=== PATIENT | male | born 1960 | race Caucasian/White ===

== ENCOUNTER 2022-08-29 09:45 | Outpatient (CLI) | payer BC, SELFPAY | END 2022-08-29 09:46 | disposition home or self-care (01) | PROVIDERS: PCP Internal Medicine; Visit Provider Internal Medicine | DX: R61 Generalized hyperhidrosis (principal) | CPT/HCPCS: 80053; 80061; 84443 ==

== ENCOUNTER 2022-09-15 09:41 | Outpatient (CLI) | payer BC, SELFPAY ==
--- OUTSIDE RECORDS SUMMARY | 2022-09-17 09:09 | XMS_ITS | Continuity of Care Document ---
Author Name Unknown Organization [facility] Address [address] [address] [place] [address] Phone Care Team Providers Care Embryology Professor Name Role Phone Paul Dey MD Unavailable Unavailable Allergies, Adverse Reactions, Alerts Substance Reaction Status Criticality cat dander Active No Information Medications Medication Instructions Dosage Effective Dates (start - stop) Status Comments Prilosec OTC 20 mg tablet,delayed release take 1 capsule by oral route every day 1 capsule - Active Procedures Procedure Date Office Cons New/estab Mod Advance Directives Directive Yes / No Effective Date File Name No Information Encounters Encounter Description Practice Location Reason(s) For Visit Diagnoses Date Provider Providers Copied on Encounter [facility], [address] [address], [place], [place], [id number], [place] tel:[phone] [facility] No Information Tiburcio Miller. [address] [place] [address], [place] [address], [place], [place], [id number], [place]. tel:[phone] Office Cons New/estab Mod [facility], [address] [address], [place], [place], [id number], [place] tel:[phone] [facility] GI Symptoms or Concerns (chief complaint) Cough Tiburcio Miller. [address] [place] [address], [facility] [address], [place], [place], [id number], [place]. tel:[phone] Referring Provider: Barrington Heart MD, [address] [place], [address]. tel:[phone] Family History Family Member Type Diagnosis Age At Onset Mother Problem (finding) breast cancer Father Problem (finding) stomach cancer Payers Payer name Insurance type Covered green party ID Authoriza tion(s) No Information Social History Type Description Quantity Date Captured Comments Alcohol Use Details Unknown Caffeine Use Details Unknown Tobacco Use Status No Information Smoking Status No Information Sex Male Chief Complaint And Reason For Visit No Information Reason For Referral Reason For Referral No Information Plan Of Treatment Date Type Action Status No Information History Of Present Illness Encounter Date Complaint History Of Prese nt Illness GI Symptoms or Concerns I had th e pleasure of meeting Mr. Vipul Baez, a 59-year-old gentleman, seen in consultation at the request of Dr. Anderson Florentino, who presents with a complaint of cough, globus sensation, and acid reflux.Vipul begins the interview by telling me that his symptoms began last summer. He says that he was evaluating a piece of land and was digging in the dirt when he believes he may have inhaled something and he started coughing and feeling a chest pressure. This was quite severe for several hours, but unfortunately did not go away completely. He went on to have several months of morning coughing, throat clearing, and production of sputum. He went to see his Primary and was given a steroid inhaler, which also caused some pressure and did not completely relieve his symptoms.He wonders if perhaps some of his symptoms could be related to acid reflux as he has had chronic reflux and has been on omeprazole at a 20 mg dose for many years. Typically, the omeprazole that he i Functional Status Date Functional Assessmen t No Information Instructions Date Instruction Additional Infor jaz 1. Increase omeprazo le to 20 mg twice per day.2. He will update me, and if there is no improvement, we could consider switching to a different PPI in case he is experiencing tachyphylaxis from the chronic omeprazole use. Something like pantoprazole 40 mg daily would be the next option.3. I will obtain the records from his endoscopy and colonoscopy to ensure that he was not missing something on his recollection of these to me.Thank you so much for involving me in the care of Mr. Baez. Related to Cough Assessments Type Assessment Date No Information Patient Care Teams Name Effective Dates (start - stop) Status Members No Information
== END 2022-09-15 09:42 | disposition home or self-care (01) ==
LOC: NFLDREF 09-17 09:06
PROVIDERS: PCP Internal Medicine; Referring Provider Internal Medicine; Visit Provider Internal Medicine
DX: G47.00 Insomnia, unspecified (principal)
CPT/HCPCS: 82533

== ENCOUNTER 2022-12-19 14:46 | Outpatient (CLI) | payer BC, SELFPAY ==
--- NOTE | 2022-12-19 15:00 | CRLHL7_ITS ---
For Patients: As a result of the Century Cures Act, medical imaging exams and procedure reports are released immediately into your electronic medical record. You may view this report before your referring provider. If you have questions, please contact your health care provider. Indication: Chronic sinusitis. Technique: Noncontrast axial CT of the paranasal sinuses with coronal reformats are provided. No comparisons. Findings: 6 millimeter mucous retention cyst or polyp along the lateral wall of the right maxillary sinus. The remainder of the visualized paranasal sinuses are clear. The ostiomeatal complexes are patent bilaterally. The visualized intraorbital contents appear within normal limits. Impression: 1. Minor inflammatory change within the right maxillary sinus. 2. Otherwise, unremarkable CT of the paranasal sinuses. Please note that all CT scans at this facility use dose modulation, iterative reconstruction, and/or weight-based dosing when appropriate to reduce radiation dose to as low as reasonably achievable. Dictated by Mika Abdul MD @ 12/19/2022 9:54:02 PM (Electronically Signed)
== END 2022-12-19 14:47 | disposition home or self-care (01) ==
LOC: CT 14:47
PROVIDERS: PCP Internal Medicine; Visit Provider Internal Medicine
DX: J32.9 Chronic sinusitis, unspecified (principal)
CPT/HCPCS: 70486

== ENCOUNTER 2023-05-09 10:04 | Outpatient (CLI) | payer BC, SELFPAY ==
--- OUTSIDE RECORDS SUMMARY | 2023-05-09 10:08 | XMS_ITS | Continuity of Care Document ---
Author Name Unknown Organization [facility] Address [address] [place] [address] Phone Care Team Providers Care Tool And Die Maker Name Role Phone Kendrick Tsang MD Unavailable Unavailable Medications Medication Instructions Dosage Effective Dates (start - stop) Status Comments prednisone 20 mg tablet take 1 Tablet by oral route 2 times every day for 5 days then one tablet po qd x5 then d/c. 20 MG - No Longer Active Procedures Procedure Date Lumbar Spine Fusion, Posterolateral Spine Fusion, Each Add'Lvertebra 2018 Remove Lumbar Spine Lamina, 1 Seg X3 Mod ifier Remove Added Spine Lamina, 1 Seg 2018 Insert Spine Fixation, Posterior 2018 Lumbar Spine Fusion, Posterolateral Spine Fusion, Each Add'Lvertebra 2018 Remove Lumbar Spine Lamina, 1 Seg Remove Added Spine Lamina, 1 Seg 2018 Scan Proc Spinal BONE MARROW ASPIR BONE GRFG Autograft, Spine Surgery, Local 019 Allograft, Spine Surg, Morselized Insert Spine Fixation, Posterior 2018 Advance Directives Directive Yes / No Effective Date File Name No Information Encounters Encounter Description Practice Location Reason(s) For Visit Diagnoses Date Provider Providers Copied on Encounter [facility], [address], [place], [place], [id number], [place] tel:[phone] [facility] No Information 9 Sharan Marks. [facility], [address] [place] [address] [address], [place], [place], [id number], [place]. tel:[phone] [facility], [address], [place], [place], [id number], [place] tel:[phone] [facility] No Information 9 Hazel Neal. [facility], [address] [place] [address] [address], [place], [place], [id number], [place]. tel:[phone] Referring Provider: ALVIN Holman [place]. tel:[phone] [facility], [address], [place], [place], [id number], [place] tel:[phone] [facility] No Information 9 Sharan Marks. [facility], [address] [place] [address] [address], [place], [place], [id number], [place]. tel:[phone] Referring Provider: ALVIN Holman [place]. tel:[phone] Family History Family Member Type Diagnosis Age At Onset No Information Payers Payer name Insurance type Covered alliance party ID Authoriza tion(s) No Information Social History Type Description Quantity Date Captured Comments Sex Male Smoking Status No Information Chief Complaint And Reason For Visit No Information Reason For Referral Reason For Referral No Information History Of Present Illness Encounter Date Complaint History Of Prese nt Illness No Information Functional Status Date Functional Assessmen t No Information Instructions Date Instruction Additional Infor mation No Information Assessments Type Assessment Date No Information Patient Care Teams Name Effective Dates (start - stop) Status Members No Information
== END 2023-05-09 10:05 | disposition home or self-care (01) ==
LOC: LKVREF 10:06
PROVIDERS: PCP Internal Medicine; Visit Provider Otolaryngology
DX: R05.9 Cough, unspecified (principal); E66.9 Obesity, unspecified
CPT/HCPCS: 83036; 83516

== ENCOUNTER 2023-08-03 13:24 | Outpatient (CLI) | payer BC, SELFPAY ==
--- NOTE | 2023-08-03 14:00 | CT_ITS ---
Patient: MARK RUSSO Facility:?[facility] Patient ID:?[id number] Site Patient ID:?[id number]. Site :?[id number] Study:?CT-Chest WO-08/03/2023 1:46:25 PM Ordering Physician:GRADY Final Report: Indication: Shortness of breath Technique: Noncontrast CT chest Please note that all CT scans at this facility use dose modulation, iterative reconstruction, and/or weight-based dosing when appropriate to reduce radiation dose to as low as reasonably achievable. Comparison: 09/26/2020 Findings: Visualized thyroid is within normal limits. No enlarged lymph nodes are present within the thorax. No pleural or pericardial effusion. Adrenal glands are within normal limits. Spleen is not enlarged. Degenerative changes are present at both shoulders. Stable small nodules within the right perihilar lung measuring up to 4.4 millimeters, series 3, image 53 and image 54. Interval resolution of bilateral ground-glass opacities. No pulmonary fibrosis. 3 millimeter calcified nodule right lung apex. Ectasia of the descending thoracic aorta without aneurysm. Impression: No airspace disease or fibrosis. Sub 6 millimeter right-sided pulmonary nodules. Optional 1 year follow-up if the patient is a smoker. No adenopathy. Please note that all CT scans at this facility use dose modulation, iterative reconstruction, and/or weight-based dosing when appropriate to reduce radiation dose to as low as reasonably achievable. Dictated by Andre Wilkinson MD @ 08/04/2023 9:00:18 AM Signed by:?Andre Wilkinson MD @08/04/2023 9:00:18 AM (Electronic Signature)
== END 2023-08-03 13:25 | disposition home or self-care (01) ==
LOC: CT 13:25
PROVIDERS: PCP Internal Medicine; Visit Provider Internal Medicine
DX: R06.02 Shortness of breath (principal)
CPT/HCPCS: 71250

== ENCOUNTER 2023-09-25 10:05 | Outpatient (CLI) | payer OTHER, SELFPAY ==
--- OUTSIDE RECORDS SUMMARY | 2023-09-27 07:27 | XMS_ITS | Clinical Summary ---
Author Name Unknown Organization [facility] Address [place], [place] [address] Care Team Providers Care Agronomist Name Role Phone Kirby Medley MD Primary Care Provider Allergies Active Allergy Reactions Criticality Noted Date Comments Cat Dander Runny Nose 08/10/2018 Ciprofloxacin Intolerance-Can't Take,Rash 11/06/2006 JOINT PAIN Opioids - Morphine Analogues Shortness Of Breath High 08/10/2018 Patient is sensitive to ALL opioids. Can tolerate 1/2 doses Quinolones Hives Medium 08/10/2018 Sulfa (Sulfonamide Antibiotics) Hives,Rash 11/06/2006 Sulfasalazine Hives 10/10/2014 Triamcinolone Anxiety 10/10/2014 PN: chest pain, constipation, severe redness of face, headaches Medications Medication Sig Dispensed Refills Start Date End Date Status omeprazole (PRILOSEC) 20 mg Delayed-Release capsuleIndications :GERD (gastroesophageal reflux disease) Take 20 mg by mouth once daily before a meal. 0 05/29/2010 Active cholecalciferol, vitamin D3, (VITAMIN D3 ORAL) Take 1 Drop by mouth once daily. Active MAGNESIUM AMINO ACID CHELATE ORAL Take 1 Drop by mouth once daily. 400 mg per drop Active potassium gluconate 550 mg (90 mg) tab Take 1 tablet by mouth once daily. Active Patients Unique Medication From Home Take 1 Drop by mouth once daily. Nascent Iodine Liquid Active VITAMIN B COMPLEX ORAL Take 1 Drop by mouth once daily. Active acetaminophen (TYLENOL) 325 mg tabletIndications: Postoperative pain Take 2 tablets by mouth every 4 hours if needed. Max acetaminophen dose: 4000mg in 24 hrs. 60 tablet 08/15/2018 Active Active Problems Problem Noted Date Diagnosed Date GERD (gastroesophageal reflux disease) 1 Obesity, unspecified 05/29/2010 Smoker 09/05/2009 Family History Medical History Relation Name Comments Alcoholism Brother Heart Disease Father Heart Disease Mother Relation Name Status Comments Brother Father Mother Social History Tobacco Use Types Packs/Day Years Used Date Smoking Tobacco: Former Cigarettes Smokeless Tobacco: Never Comments:2002 Alcohol Use Standard Drinks/Week Comments Yes 2 (1 standard drink = 0.6 oz pur e alcohol) 4 beers/wk, none as of 10/24/19 Social Connections Answer Date Recorded Frequency of Communication with Friends and Fami ly Not on file 05/22/2021 Financial Resource Strain Answer Date R ecorded Difficulty of Paying Living Expenses Not on file 05/22/2021 Difficulty of Paying Living Expenses Not on file 05/22/2021 Sex and Gender Information Value Date Recorded Sex Assigned at Not on file Gender Identity Not on file Sexual Orientation Not on file Obstetrics History Last Filed Vital Signs Vital Sign Reading Time Taken Comments Blood Pressure 139/84 10/05/2019 11:17 PM CDT Pulse 92 10/05/2019 11:15 PM CDT Temperature 37 ??C (98.6 ??F) 10/05/2019 10:21 PM CDT Respiratory Rate 18 10/05/2019 9:27 PM CDT Oxygen Saturation 94% 10/05/2019 11:02 PM CDT Inhaled Oxygen Concentration - - Weight 101.6 kg (224 lb) 10/05/2019 9:27 PM CDT Height 175.3 cm (5' 9) 10/05/2019 9:27 PM CDT Body Mass Index 33.08 10/05/2019 9:27 PM CDT Plan of Treatment Health Maintenance Due Date Last Done Comments Tdap 1973 Depression screening for age 12+ 1974 HIV for age 15-65 1977 Hepatitis C screening for ag e 18-79 1980 Tetanus booster 1982 Colonoscopy through age 75 12/18/2007 Lipids for age 45-75 12/18/2007 Zoster (shingles) series for age 50+ (1 of 2) 2012 BMI (ht and wt on same day) for age 18+ 06/22/2019 06/22/2018 COVID-19 vaccine series (2022- season) 2023 Influenza for age 50-64 01/21/2024 Pneumococcal series for age 6-64 Aged Out No longer eligible based on patient's age to complete this topic Medical Devices Implanted Type Area Gear Nicker Device Identifier Shelf Expiration Date Model / Serial / Lot [id number] Osteoampsponge Implanted:Qty: 1 on 08/13/2018 by Kendrick Tsang MD at [facility] Explanted:at [facility] (Quantity not on file) Spine [employer] 03/26/2023 [id number]# / [id number] / [id number] Matrix [id number] Osteoampsponge Implanted:Qty: 1 on 08/13/2018 by Kendrick Tsang MD at [facility] Explanted:at [facility] (Quantity not on file) Spine [employer] 05/28/2023 [id number] / [id number] / Set Screw Lmbr 4.68r37ri Solera 4.75 Ns Brk Off - [id number] Implanted:Qty: 7 on 08/13/2018 by Kendrick Tsang MD at [facility] Spine [employer] Spine/Ortho [id number]# / / Screw Lmbr Post 7.5x50mm Solera 4.75 Va - [id number] Implanted:Qty: 2 on 08/13/2018 by Kendrick Tsang MD at [facility] Spine [employer] Spine/Ortho [id number]# / / Screw Lmbr Post 8.5x40mm Solera 4.75 Va - [id number] Implanted:Qty: 2 on 08/13/2018 by Kendrick Tsang MD at [facility] Spine [employer] Spine/Ortho [id number]# / / Ziyad Lmbr 40mmx4.75cm Solera 4.75 Cvd Co Cr - [id number] Implanted:Qty: 1 on 08/13/2018 by Kendrick Tsang MD at [facility] Spine [employer] Spine/Ortho [id number] # / / Ziyad Lmbr 45mmx4.75cm Solera 4.75 Cvd Co Cr - [id number] Implanted:Qty: 1 on 08/13/2018 by Kendrick Tsang MD at [facility] Spine [employer] Spine/Ortho [id number] # / / Advance Directives * Full Code (Latest Code Status on File) Date Activated Date Inactivated Comments 08/13/2018 5:23 PM 08/15/2018 2:53 PM Care Teams Agronomist Relationship Specialty Start Date End Date Kirby Medley MD [address] [place] [address] PCP - General Internal Medicine 10/24/19
--- OUTSIDE RECORDS SUMMARY | 2023-09-27 07:27 | XMS_ITS | Encounter Summary ---
Author Name Unknown Organization [facility] Address [address] [place] [address] Care Team Providers Care Delivery Motorcycle Driver Name Role Phone Kirby Medley MD Primary Care Provider [phone] Encounter Details Date Type Department Care Team (Late st Contact Info) Description 10/27/[address] Orders [address] [facility] [address] [place] [address] Joe Stearns MD [address] [place] [address] Rotator cuff tear, left Social History Tobacco Use Types Packs/Day Years Used Date Smoking Tobacco: Never Assessed Sex and Gender Information Value Date Recorded Sex Assigned at Not on file Gender Identity Not on file Sexual Orientation Not on file documented as of this encounter Plan of Treatment Not on file documented as of this encounter Visit Diagnoses Diagnosis Rotator cuff tear, left Rotator cuff (capsule) sprain documented in this encounter Care Teams Delivery Motorcycle Driver Relationship Specialty Start Date End Date Kirby Medley MD [address] [place] [address] PCP - General 09/30/14 documented as of this encounter
--- OUTSIDE RECORDS SUMMARY | 2023-09-27 07:27 | XMS_ITS | Continuity of Care Document ---
Author Name Unknown Organization [facility] Address [address] [place] [address] Phone Care Team Providers Care Dampener Operator Name Role Phone Kendrick Tsang MD Unavailable [...] Copied on Encounter [facility], [address], [place], [place], [id number], [place] tel:[phone] [facility] No Information 9 Sharan Marks. [facility], [address] [place] [address] [address], [place], [place], [id number], [place]. tel:[phone] [facility], [address], [place], [place], [id number], [place] tel:[phone] [facility] No Information 9 Hazel Neal. [facility], [address] [place] [address] [address], [place], [place], [id number], [place]. tel:[phone] Referring Provider: ALVIN Holman [place]. tel:[phone] [facility], [address], [place], [place], [id number], [place] tel:[phone] [facility] No Information 9 Sharan Marks. [facility], [address] [place] [address] [address], [place], [place], [id number], [place]. tel:[phone] Referring Provider: ALVIN Holman [place]. tel:[phone] Family History Family Member Type Diagnosis Age [...]
--- OUTSIDE RECORDS SUMMARY | 2023-09-27 07:27 | XMS_ITS | Clinical Summary ---
Author Name Unknown Organization [facility] Address [address], [place] [address] Care Team Providers Care Test Development Engineer Name Role Phone Kirby Medley MD Primary Care Provider [phone] Source Comments You are receiving this document as you are listed as the primary care provider,follow-up provider, or the patient has been referred to you for consultation.This is in compliance with the Medicare and[facility] EHR Incentive Program,which states Providers who transition their patient to another setting of careor provider of care or refers their patient to another provider of care shouldprovide summary care record for each transition of care or referral. [facility] Allergies Active Allergy Reactions Criticality Noted Date Comments Ciprofloxacin Rash 11/03/2014 Sulfa Antibiotics Hives 10/10/2014 Triamcinolone Anxiety 10/10/2014 PN: chest pain, constipation, severe redness of face, headaches Medications Medication Sig Dispensed Refills Start Date End Date Status omeprazole (AKA PRILOSEC) 10 MG capsule Take 10 mg by mouth daily (every 24 hours). 10/10/2014 Active Active Problems No known active problems Social History Tobacco Use Types Packs/Day Years Used Date Smoking Tobacco: Former Cigarettes Smokeless Tobacco: Never Comments:quit 4 yrs ago Alcohol Use Standard Drinks/Week Comments Yes 3 (1 standard drink = 0.6 oz pur e alcohol) Sex and Gender Information Value Date Recorded Sex Assigned at Not on file Gender Identity Not on file Sexual Orientation Not on file Last Filed Vital Signs Vital Sign Reading Time Taken Comments Blood Pressure 133/79 08/07/2017 3:30 PM CDT Pulse 74 08/07/2017 3:30 PM CDT Temperature 36.6 ??C (97.8 ??F) 08/07/2017 3:20 PM CD T Respiratory Rate 16 08/07/2017 3:30 PM CDT Oxygen Saturation 95% 08/07/2017 3:30 PM CDT Inhaled Oxygen Concentration - - Weight 104.3 kg (230 lb) 05/29/2018 12:39 PM [employer] Height 175.3 cm (5' 9) 05/29/2018 12:39 PM [employer] Body Mass Index 33.97 05/29/2018 12:39 PM [employer] Plan of Treatment Health Maintenance Due Date Last Done Comments Colon Cancer Screening Plan Due 1960 Hep C Screening (Preventive Services) 1960 PSA Screening Discussion 1962 HIV Screening (Preventive Services) 1978 Adult Preventive Visit 1980 DTaP/Tdap/Td (1 - Tdap) 1981 Cholesterol 1997 Zoster/Shingles (1 of 2) 2012 COVID-19 Vaccine (2022-2 4 season) 2023 Influenza (Season Ended) 2024 HepA Aged Out No longer eligi ble based on patient's age to complete this topic HepB Aged Out No longer eligi ble based on patient's age to complete this topic Hib Aged Out No longer eligi ble based on patient's age to complete this topic IPV (Polio) Aged Out No longer eligi ble based on patient's age to complete this topic MCV4 Aged Out No longer eligi ble based on patient's age to complete this topic Pneumococcal Aged Out No longer eligi ble based on patient's age to complete this topic Medical Devices Implanted Type Area Review Analyst Device Identifier Shelf Expiration Date Model / Serial / Lot [place] [employer] - [id number] Implanted:Qty: 1 on 08/07/2017 by Joe Stearns MD at [facility] Right: SHOULDER [employer] 05/21/2019 [id number] -4 / 000 / [id number] Biotendesis Swivelock - [id number] Implanted:Qty: 1 on 08/07/2017 by Joe Stearns MD at [facility] Right: SHOULDER [employer] 04/20/2019 [id number] / 000 / [id number] Care Teams Test Development Engineer Relationship Specialty Start Date End Date Kirby Medley MD [address] [place] [address] PCP - General 09/30/14
== END 2023-09-25 10:06 | disposition home or self-care (01) ==
LOC: NFLDREF 09-27 07:25
PROVIDERS: PCP Internal Medicine; Referring Provider Internal Medicine; Visit Provider Internal Medicine
DX: M81.0 Age-related osteoporosis without current pathological fracture (principal); E78.5 Hyperlipidemia, unspecified; R97.20 Elevated prostate specific antigen [PSA]; Z13.29 Encounter for screening for other suspected endocrine disorder; Z12.5 Encounter for screening for malignant neoplasm of prostate; Z13.21 Encounter for screening for nutritional disorder
CPT/HCPCS: 80053; 80061; 82306; 82607; 84443; G0103

== ENCOUNTER 2024-01-03 19:53 | Emergency (ER) | payer OTHER, SELFPAY ==
[2024-01-03] VITALS (27 sets, daily range): BP systolic 112–159; BP diastolic 78–103; PULSE 66–120; RESP 16–24; TEMP 36.2; O2SAT 93–98; BMI 35.0
--- NOTE | 2024-01-03 20:14 | ED_ITS ---
HPI - General Adult General Chief complaint: Arrhythmia/Palpitations Stated complaint: irregular heartbeat Time Seen by Provider: 01/03/24 20:13 History of Present Illness HPI narrative: Patient reports sudden onset of feeling irregular heartbeats last night after drinking a root beer. Has been in A-fib twice but he reports this feels about different . No chest pain or shortness of breath reported. 63-year-old man presenting to the emergency department with concern of irregular heartbeat. This hit ?bam after he had a root beer float. He is here about 3 hours after onset. Does have a history of AFib with RVR and has had 2 electrical cardioversions. They sound to have been without significant event. He is not feeling lightheaded. He says this time it feels just different than it has in the past. He is not having chest pain is not short of breath. No nausea. Was drinking alcohol last night. He is not anticoagulated. Is clear about time of onset. Past medical also significant for GERD and takes a PPI as well as laryngospasm. Does he reports, have a history of hypokalemia and hypomagnesemia. He does supplement magnesium. Related Data Home Medications ?Medication ?Instructions ?Recorded ?Confirmed albuterol sulfate 90 mcg/actuation 1 inh inhalation Q8H PRN 12/03/21 01/03/24 aerosol inhaler cholecalciferol (vitamin D3) 25 25 mcg PO QDAY 12/03/21 09/27/23 mcg (1,000 unit) capsule cod liver oil 1 cap PO ONCE 12/03/21 09/27/23 magnesium citrate 100 mg tablet 100 mg PO BID 12/03/21 09/27/23 melatonin-pyridoxine HCl (vitamin 3 tab PO .Bedtime 12/03/21 09/27/23 B6) 3 mg-10 mg tablet omeprazole 20 mg capsule,delayed 20 mg PO QDAY 12/03/21 09/27/23 release vitamin B complex (B 1 tab PO QDAY 12/03/21 09/27/23 Complex-Vitamin B12 tablet) esomeprazole magnesium 20 mg 20 mg PO DAILY 01/03/24 01/03/24 capsule,delayed release (Acid Machine Lead Burner (esomeprazole)) Previous Rx's ?Medication ?Instructions ?Recorded clonazepam 1 mg tablet 1 mg PO QHS Insomnia #60 tabs 02/20/23 Allergies Allergy/AdvReac Type Severity Reaction Status Date / Time Quinolones Allergy Mild Hives Verified 09/27/23 10:22 ciprofloxacin Allergy Unknown Verified 09/27/23 10:22 cat dander Allergy Verified 09/27/23 10:22 Sulfa Antibiotics Allergy Mild Rash Uncoded 09/27/23 10:22 opioids AdvReac Severe Breathing Uncoded 09/27/23 10:22 problems Review of Systems Status of ROS: Reports: 6 or more systems reviewed and unremarkable except as noted in History and below [facility] Medical History GERD (gastroesophageal reflux disease) ?K21.9 - Gastro-esophageal reflux disease without esophagitis (ICD-10) Gastroesophageal reflux (04/20/11) ?K21.9 - Gastro-esophageal reflux disease without esophagitis (ICD-10) Screening due ?Z13.9 - Encounter for screening, unspecified (ICD-10) Elevated PSA ?R97.20 - Elevated prostate specific antigen [PSA] (ICD-10) SOB (shortness of breath) ?R06.02 - Shortness of breath (ICD-10) Asthma ?J45.909 - Unspecified asthma, uncomplicated (ICD-10) Sinusitis ?J32.9 - Chronic sinusitis, unspecified (ICD-10) Cellulitis ?L03.90 - Cellulitis, unspecified (ICD-10) Night sweats ?R61 - Generalized hyperhidrosis (ICD-10) Palpitations ?R00.2 - Palpitations (ICD-10) Insomnia ?G47.00 - Insomnia, unspecified (ICD-10) Acute sinusitis with symptoms greater than 10 days ?J01.90 - Acute sinusitis, unspecified (ICD-10) Acute bronchitis ?J20.9 - Acute bronchitis, unspecified (ICD-10) Surgical History Status post lumbar spinal fusion ?Z98.1 - Arthrodesis status (ICD-10) Social History Smoking Status: Former smoker Little interest or pleasure in doing things: not at all Feeling down, depressed, or hopeless: not at all Exam Narrative: Exam Narrative: Pleasant. Of good energy. Darkly tanned. Breathing easily. Heart in a rapid irregularly irregular rhythm. Lungs are clear. Abdomen is overweight and soft. He has a small noninflamed umbilical hernia. Oropharynx is WNL. During conversation however peers that he swallows wrong and does begin to cough or have some irritation in his throat he says consistent with his history of laryngospasm. Otherwise extremities are well perfused. He is without edema. Const: Vital Signs, click to edit/add: Vital Signs - 24 hr 01/03/24 19:59 01/03/24 20:16 01/03/24 20:17 Temperature 97.2 F L Pulse Rate 102 H 118 H Pulse Rate [Pulse Oximeter] 120 H Respiratory Rate 18 Blood Pressure 153/88 H Blood Pressure [Ri ght Upper Arm] 159/78 H Pulse Oximetry 96 95 97 Oxygen Delivery Me thod Room Air Oxygen Flow Rate 01/03/24 20:30 01/03/24 20:42 01/03/24 20:45 Temperature Pulse Rate 104 H 91 84 Pulse Rate [Pulse Oximeter] Respiratory Rate Blood Pressure 143/96 H Blood Pressure [Ri ght Upper Arm] Pulse Oximetry 96 94 95 Oxygen Delivery Me thod Oxygen Flow Rate 01/03/24 20:52 01/03/24 21:00 01/03/24 21:02 Temperature Pulse Rate 90 82 78 Pulse Rate [Pulse Oximeter] Respiratory Rate Blood Pressure 123/84 129/82 Blood Pressure [Ri ght Upper Arm] Pulse Oximetry 93 96 95 Oxygen Delivery Me thod Oxygen Flow Rate 01/03/24 21:03 01/03/24 21:15 01/03/24 21:18 Temperature Pulse Rate 88 83 95 Pulse Rate [Pulse Oximeter] Respiratory Rate Blood Pressure 124/84 Blood Pressure [Ri ght Upper Arm] Pulse Oximetry 95 95 95 Oxygen Delivery Me thod Oxygen Flow Rate 01/03/24 21:30 01/03/24 21:33 01/03/24 21:34 Temperature Pulse Rate 85 84 86 Pulse Rate [Pulse Oximeter] Respiratory Rate 16 Blood Pressure 120/80 Blood Pressure [Ri ght Upper Arm] Pulse Oximetry 93 95 96 Oxygen Delivery Me thod Oxygen Flow Rate 01/03/24 21:45 01/03/24 22:07 01/03/24 22:10 Temperature Pulse Rate 99 110 H Pulse Rate [Pulse Oximeter] Respiratory Rate 19 Blood Pressure Blood Pressure [Ri ght Upper Arm] Pulse Oximetry 95 98 98 Oxygen Delivery Me thod Nasal Cannula Oxygen Flow Rate 2 01/03/24 22:10 01/03/24 22:13 01/03/24 22:15 Temperature Pulse Rate 97 109 H 75 Pulse Rate [Pulse Oximeter] Respiratory Rate 17 21 23 Blood Pressure 147/102 H 151/103 H Blood Pressure [Ri ght Upper Arm] Pulse Oximetry 98 98 97 Oxygen Delivery Me thod Nasal Cannula Nasal Cannula Nasal Cannula Oxygen Flow Rate 2 2 2 01/03/24 22:16 01/03/24 22:18 01/03/24 22:19 Temperature Pulse Rate 75 72 74 Pulse Rate [Pulse Oximeter] Respiratory Rate 24 20 18 Blood Pressure 148/80 H 130/80 Blood Pressure [Ri ght Upper Arm] Pulse Oximetry 95 98 98 Oxygen Delivery Me thod Nasal Cannula Nasal Cannula Oxygen Flow Rate 2 2 01/03/24 22:23 01/03/24 22:30 01/03/24 22:32 Temperature Pulse Rate 71 70 69 Pulse Rate [Pulse Oximeter] Respiratory Rate 24 19 19 Blood Pressure 112/82 122/86 Blood Pressure [Ri ght Upper Arm] Pulse Oximetry 97 96 97 Oxygen Delivery Me thod Oxygen Flow Rate 01/03/24 22:33 Temperature Pulse Rate 66 Pulse Rate [Pulse Oximeter] Respiratory Rate 17 Blood Pressure Blood Pressure [Ri ght Upper Arm] Pulse Oximetry 97 Oxygen Delivery Me thod Oxygen Flow Rate Documenting provider has reviewed patient's vital signs: yes Course Vital Signs Vital signs: Initial Vital Signs Temperature 97.2 F L 01/03/24 19:59 Temperature Source Temporal Artery Scan 01/03/24 19:59 Pulse Rate 120 H 01/03/24 19:59 Respiratory Rate 18 01/03/24 19:59 Blood Pressure 159/78 H 01/03/24 19:59 Blood Pressure Mean 105 01/03/24 19:59 Pulse Oximetry 96 01/03/24 19:59 Oxygen Delivery Method Room Air 01/03/24 19:59 Vital Signs Temperature 97.2 F L 01/03/24 19:59 Pulse Rate 120 H 01/03/24 19:59 Respiratory Rate 18 01/03/24 19:59 Blood Pressure 159/78 H 01/03/24 19:59 Pulse Oximetry 96 01/03/24 19:59 Oxygen Delivery Method Room Air 01/03/24 19:59 Temperature 97.2 F L 01/03/24 19:59 Pulse Rate 66 01/03/24 22:33 Respiratory Rate 17 01/03/24 22:33 Blood Pressure 122/86 01/03/24 22:32 Pulse Oximetry 97 01/03/24 22:33 Oxygen Delivery Method Nasal Cannula 01/03/24 22:18 Oxygen Flow Rate 2 01/03/24 22:18 Medications Administered Medications: Discontinued Medications Generic Name Dose Route Start Last Admin Trade Name Kaylen PRN Reason Stop Dose Admin Diltiazem HCl 20 mg 01/03/24 20:29 01/03/24 20:35 Diltiazem 5 Mg/Ml Inj IVP 01/03/24 20:30 20 mg ONCE ONE Administration Sodium Chloride 1,000 mls @ 1,000 mls/hr 01/03/24 22:01 01/03/24 21:20 0.9 % Sodium Chloride 1000 Ml IV 01/03/24 23:00 Infused .Q1H ONE Infusion Sodium Chloride 500 mls @ 500 mls/hr 01/03/24 22:40 01/03/24 22:44 0.9 % Sodium Chloride 500 Ml IV 01/03/24 23:39 Infused .Q1H ONE Infusion Medical Decision Making MDM Narrative Medical decision making narrative: Hooked up to monitor on arrival and EKG reviewed by me does confirm atrial fibrillation with RVR at a rate of 129. I do not see ischemic changes. IVs initiated. Received a L of normal saline and given 20 mg of diltiazem. No change in rhythm. Did draw labs on a verify magnesium level and potassium. These are reassuring. At this point risks and benefits of cardioversion and moderate procedural sedation are discussed. Did contact Anesthesia for assistance with sedation. Thankfully they are able to assist. Please see their notes for sedation record. Informed consent obtained See procedure note for electrical cardioversion. Calculated chads Vasc 2 score at 0. Should not need postprocedural antico agulation. Confirmed normal sinus on EKG reviewed by me at a rate of 65. No ischemic changes. Medical Records Medical records reviewed: Yes I reviewed the patient's medical records Lab Data Lab results reviewed: Yes I reviewed the patient's lab results Labs: Lab Results 01/03/24 01/03/24 Range/Units 20:15 21:30 Hgb 14.7 (13.5-17.5) gm/dL Sodium 141 (135-149) mmol/L Potassium 4.1 (3.6-5.1) mmol/L Chloride 109 (96-114) mmol/L Carbon Dioxide 22 (20-32) mmol/L Anion Gap 10 (7-15) mEq/L BUN 25 (7-30) mg/dL Creatinine 1.1 (0.5-1.5) mg/dL Estimated Creat Clear 68.23 Estimated GFR 76 ml/min Glucose 131 H (60-115) mg/dL Calcium 9.4 (8.4-10.6) mg/dL Magnesium 2.3 (1.5-2.6) mg/dL POC Troponin I 0.01 (0.01-0.04) ng/ml Critical Care Time Critical Care Time Critical Care Time: Yes Attestation: The patient required my highest level preparedness to intervene emergently and I personally spent this critical care time directly and personally managing the patient. This critical care time included: Obtaining a history; Examining the patient; Pulse oximetry; Ordering and reviewing of studies; Arranging urgent treatment with development of a management plan; Evaluation of patients response to treatment; Frequent reassessment discussions with other providers. This critical care time was performed to assess and manage the high probability of imminent life-threatening deterioration that could result in multiorgan failure. It was exclusive of separate billable procedures and treating other patients and teaching time. Total Critical Care Time in Minutes: 70 Discharge Plan Discharge Clinical Impression: Atrial fibrillation with rapid ventricular response Patient Disposition: Home w/ Parent or Adult Condition: Improved Additional Instructions: Continue to stay well-hydrated...mostly with water and less (root) beer. Keep active as you are doing. No restrictions. Return as needed. Pleasure caring for you. Prescriptions: No Action magnesium citrate 100 mg tablet 100 mg PO BID melatonin-pyridoxine HCl (B6) 3-10 mg tablet 3 tab PO .Bedtime albuterol sulfate 90 mcg/actuation HFA aerosol inhaler 1 inh inhalation Q8H PRN cholecalciferol (vitamin D3) 25 mcg (1,000 unit) capsule 25 mcg PO QDAY omeprazole 20 mg capsule,delayed release(DR/EC) 20 mg PO QDAY cod liver oil Capsule 1 cap PO ONCE vitamin B complex [B Complex-Vitamin B12] Tablet 1 tab PO QDAY clonazepam 1 mg tablet 1 mg PO QHS Qty: 60 0RF Rx Instructions: administer 30 minutes before bedtime esomeprazole magnesium [Acid Machine Lead Burner (esomeprazole)] 20 mg capsule,delayed release(DR/EC) 20 mg PO DAILY Follow Up/Referrals: Kirby Medley MD [Primary Care Provider] - Stand Alone Forms: Pro Player Connect Info Instructions Procedures Additional Procedures Procedure name: Electrical cardioversion Pre procedure diagnosis: Atrial fibrillation with RVR Post procedure diagnosis: Atrial fibrillation with RVR Written consent by: patient Site marking: not applicable Verification/time out: correct procedure Estimated blood loss (if any): none Conclusion: patient tolerated procedure (No complications) Additional comments: Following adequate sedation the applied synced cardioversion at 200 joules. One shock given and is returned to normal sinus verified on migratory farm hand. Rate in the 80s.
[2024-01-03] MEDS: 0.9 % SODIUM CHLORIDE 1000 ml 1,000 ML IV (20:20)
[2024-01-03] MEDS: dilTIAZem 5 MG/ML inj 20 MG IVP (20:35)
[2024-01-03 20:48] LABS: Hemoglobin* 14.7 gm/dL (13.5-17.5)
--- OUTSIDE RECORDS SUMMARY | 2024-01-03 20:54 | XMS_ITS | Encounter Summary ---
Author Organization [facility] Address [address] [place] [id number] Care Team Providers Care Associate Faculty Name Role Phone Kirby Medley MD Primary Care Provider [phone] Encounter Details Date Type Department Care Team (Late st Contact Info) Description 10/27/2014 Orders Only [facility] [place] [address] [place] [id number] Joe Stearns MD [address] [place] [address] Rotator cuff tear, left Social History Tobacco [...] sprain documented in this encounter Care Teams Associate Faculty Relationship Specialty Start Date End Date Kirby Medley MD [address] [place] [address] PCP - General 09/30/14 documented as of this encounter
--- OUTSIDE RECORDS SUMMARY | 2024-01-03 20:54 | XMS_ITS | Clinical Summary ---
Author Organization [facility] Address [place], [place] [address] Care Team Providers Care Measurement Operator Name Role Phone Kirby Medley MD Primary Care Provider [phone] Allergies Active Allergy Reactions Criticality Noted Date [...] this topic Medical Devices Implanted Type Area Chucking Machine Operator Device Identifier Shelf Expiration Date Model / Serial / Lot [id number] Osteoampsponge Implanted:Qty: 1 on 08/13/2018 by Kendrick Tsang MD at [facility] Explanted:at [facility] (Quantity not on file) Spine [employer] 03/26/2023 [id number] / [id number] / [id number] Matrix [id number] Osteoampsponge Implanted:Qty: 1 on 08/13/2018 by Kendrick Tsang MD at [facility] Explanted:at [facility] (Quantity not on file) Spine [employer] 05/28/2023 [id number] / [id number] / Set Screw Lmbr 4.15t14au Solera 4.75 Ns Brk Off - [id number] Implanted:Qty: 7 on 08/13/2018 by Kendrick Tsang MD at [facility] Spine Medtronic Spine/Ortho [id number]# / / Screw Lmbr Post 7.5x50mm Solera 4.75 Va - [id number] Implanted:Qty: 2 on 08/13/2018 by Kendrick Tsang MD at [facility] Spine [employer]tronic Spine/Ortho [id number]# / / Screw Lmbr Post 8.5x40mm Solera 4.75 Va - [id number] Implanted:Qty: 2 on 08/13/2018 by Kendrick Tsang MD at [facility] Spine [employer]tronic Spine/Ortho [id number]# / / Ziyad Lmbr 40mmx4.75cm Solera 4.75 Cvd Co Cr - [id number] Implanted:Qty: 1 on 08/13/2018 by Kendrick Tsang MD at [facility] Spine Medtronic Spine/Ortho [id number] # / / Ziyad Lmbr 45mmx4.75cm Solera 4.75 Cvd Co Cr - [id number] Implanted:Qty: 1 on 08/13/2018 by Kendrick Tsang MD at [facility] Spine Medtronic Spine/Ortho [id number] # / / Advance Directives * Full Code (Latest Code Status on File) Date Activated Date Inactivated Comments 08/13/2018 5:23 PM 08/15/2018 2:53 PM Care Teams Measurement Operator Relationship Specialty Start Date End Date Kirby Medley MD [address] [place] [address] PCP - General Internal Medicine 10/24/19
--- OUTSIDE RECORDS SUMMARY | 2024-01-03 20:54 | XMS_ITS | Clinical Summary ---
Author Organization [facility] Address [address] [place] [address] Care Team Providers Care Office Coordinator Receptionist Name Role Phone Kirby Medley MD Primary Care Provider [phone]- [phone] Source Comments You are receiving this document as you are listed as the primary care provider,follow-up provider, or the patient has been referred to you for consultation.This is in compliance with the Medicare and[employer] Health[employer] EHR Incentive Program,which states Providers who transition their patient to another setting of careor provider of care or refers their patient to another provider of care shouldprovide summary care record for each transition of care or referral. Chalkboard Allergies Active Allergy Reactions Criticality Noted Date [...] 104.3 kg (230 lb) 05/29/2018 12:39 PM GAS LOAD DISPATCHER Height 175.3 cm (5' 9) 05/29/2018 12:39 PM GAS LOAD DISPATCHER Body Mass Index 33.97 05/29/2018 12:39 PM GAS LOAD DISPATCHER Plan of Treatment Health Maintenance Due Date Last Done Comments Colon Cancer Screening Plan Due 1962 Hep C Screening (Preventive Services) 1962 PSA Screening Discussion 1962 HIV Screening (Preventive Services) 1978 Adult Preventive Visit 1980 DTaP/Tdap/Td (1 - Tdap) 1981 Cholesterol 1997 Zoster/Shingles (1 of 2) 2012 COVID-19 Vaccine (2022-2 4 season) 2023 Influenza (#1) 2024 HepA Aged Out No longer eligi [...] this topic Medical Devices Implanted Type Area C4 Planner Device Identifier Shelf Expiration Date Model / Serial / Lot [place] [employer] - [id number] Implanted:Qty: 1 on 08/07/2017 by Joe Stearns MD at [facility] Right: SHOULDER [employer] 05/21/2019 [id number] -4 / 000 / [id number] Scr Biotendesis Swivelock - [id number] Implanted:Qty: 1 on 08/07/2017 by Joe Stearns MD at [facility] Right: SHOULDER [employer] 04/20/2019 [id number] / 000 / [id number] Care Teams Office Coordinator Receptionist Relationship Specialty Start Date End Date Kirby Medley MD [address] [place] [address] PCP - General 09/30/14
[2024-01-03 21:00] LABS: Chloride* 109 mmol/L (96-114); Potassium* 4.1 mmol/L (3.6-5.1); Sodium* 141 mmol/L (135-149)
[2024-01-03 21:03] LABS: Anion Gap 10 mEq/L (7-15); Blood Urea Nitrogen* 25 mg/dL (7-30); Carbon Dioxide* 22 mmol/L (20-32); Creatinine* 1.1 mg/dL (0.5-1.5); Est. Creatinine Clearance* 68.23; Estimated Glomerular Filt Rate 76 ml/min
[2024-01-03 21:04] LABS: Calcium* 9.4 mg/dL (8.4-10.6); Glucose* 131 mg/dL (60-115); Magnesium* 2.3 mg/dL (1.5-2.6)
[2024-01-03 21:33] LABS: Troponin, Point-of-Care* 0.01 ng/ml (0.01-0.04)
[2024-01-03] MEDS: 0.9 % SODIUM CHLORIDE 500 ML 500 ML IV (22:05)
--- NOTE | 2024-01-03 22:24 | P.ANES_ITS ---
Anesthesia Charges Start Date/Time Anesthesia Start Date: 01/03/24 Anesthesia Start Time: 22:05 Stop Date/Time Anesthesia Stop Date: 01/03/24 Anesthesia Stop Time: 22:15 Summary Emergency: ACCOUNTING SOFTWARE SPECIALIST
== END 2024-01-03 22:52 | disposition home or self-care (01) ==
PROVIDERS: Emergency Provider Family Medicine; PCP Internal Medicine
DX: I48.91 Unspecified atrial fibrillation (principal)
CPT/HCPCS: 92960; 00410; 36415; 80048; 83735; 84484; 85018; 93005; 99140; 99284; 99291; 99292; J7030

== ENCOUNTER 2024-03-22 11:33 | Outpatient (CLI) | payer OTHER, SELFPAY | END 2024-03-22 11:34 | disposition home or self-care (01) | LOC: NFLDREF 03-25 12:21 | PROVIDERS: PCP Internal Medicine; Referring Provider Internal Medicine; Visit Provider Internal Medicine | DX: R97.20 Elevated prostate specific antigen [PSA] (principal); Z12.5 Encounter for screening for malignant neoplasm of prostate | CPT/HCPCS: G0103 ==

== ENCOUNTER 2024-06-06 07:14 | Outpatient (CLI) | payer BC, SELFPAY ==
--- NOTE | 2024-06-06 08:44 | P.ANES_ITS ---
Anesthesia Charges Start Date/Time Anesthesia Start Date: 06/06/24 Anesthesia Start Time: 07:53 Stop Date/Time Anesthesia Stop Date: 06/06/24 Anesthesia Stop Time: 08:43 Coding CPT Codes CPT Codes: ANES UPR LWR GI NDSC PX - 56166 ([id number]) P2 - PATIENT W/MILD SYST DISEASE, QX - ABAP DEVELOPER SVC W/ MD MED DIRECTION, QK - REPORT ANALYST 2-4 CNCRNT ANES PROC
--- NOTE | 2024-06-06 08:44 | W.ANESCHARGE ---
Anesthesia Charges Start Date/Time Anesthesia Start Date: 06/06/24 Anesthesia Start Time: 07:53 Stop Date/Time Anesthesia Stop Date: 06/06/24 Anesthesia Stop Time: 08:43 Coding CPT Codes CPT Codes: ANES UPR LWR GI NDSC PX - 54781 ([id number]) P2 - PATIENT W/MILD SYST DISEASE, QX - VIDEO CLERK SVC W/ MD MED DIRECTION, QK - THERAPY ASSISTANT 2-4 CNCRNT ANES PROC
--- NOTE | 2024-06-06 09:29 | P.ANES_ITS ---
Anesthesia Charges Start Date/Time Anesthesia Start Date: 06/06/24 Anesthesia Start Time: 07:53 Stop Date/Time Anesthesia Stop Date: 06/06/24 Anesthesia Stop Time: 08:43 Coding CPT Codes CPT Codes: ANES UPR LWR GI NDSC PX - 30871 ([id number]) QK - TRANSLATOR 2-4 CNCRNT ANES PROC, QX - MANDATE RETAIL SERVICE MERCHANDISER SVC W/ MD MED DIRECTION, P2 - PATIENT W/MILD SYST DISEASE
--- NOTE | 2024-06-06 09:29 | W.ANESCHARGE ---
Anesthesia Charges Start Date/Time Anesthesia Start Date: 06/06/24 Anesthesia Start Time: 07:53 Stop Date/Time Anesthesia Stop Date: 06/06/24 Anesthesia Stop Time: 08:43 Coding CPT Codes CPT Codes: ANES UPR LWR GI NDSC PX - 97095 ([id number]) QK - CLINIC OFFICE MANAGER 2-4 CNCRNT ANES PROC, QX - SALES CONTRACTS ANALYST SVC W/ MD MED DIRECTION, P2 - PATIENT W/MILD SYST DISEASE
== END 2024-06-06 07:15 | disposition home or self-care (01) ==
PROVIDERS: PCP Internal Medicine; Visit Provider Surgery
DX: Z12.11 Encounter for screening for malignant neoplasm of colon (principal); D12.3 Benign neoplasm of transverse colon; D12.8 Benign neoplasm of rectum; Z86.0100 Personal history of colon polyps, unspecified; K21.9 Gastro-esophageal reflux disease without esophagitis
CPT/HCPCS: 00813; 43239; 45385; 88305; J2704; J3490

== ENCOUNTER 2024-11-13 10:19 | Outpatient (CLI) | payer BC, SELFPAY ==
[2024-11-13 10:46] LABS: Creatinine* 1.2 mg/dL (0.5-1.5); Estimated Glomerular Filt Rate 69 ml/min
--- NOTE | 2024-11-13 11:00 | CRLHL7_ITS ---
For Patients: As a result of the Century Cures Act, medical imaging exams and procedure reports are released immediately into your electronic medical record. You may view this report before your referring provider. If you have questions, please contact your health care provider. Indication: CHRONIC COUGH Technique: CT Chest W/75CC [id number] intravenous contrast Please note that all CT scans at this facility use dose modulation, iterative reconstruction, and/or weight-based dosing when appropriate to reduce radiation dose to as low as reasonably achievable. Comparison: 08/03/2023 Findings: Scattered subcentimeter mediastinal lymph nodes are again noted. No pleural or pericardial effusion. The upper abdomen is unremarkable. Visualized thyroid is within normal limits. No fracture. Stable perifissural nodule on the right. Stable tiny nodules within the right upper lobe. No new nodules. Stable nodule within the left upper lobe. Impression: No significant change compared to the prior exam. No suspicious findings. Please note that all CT scans at this facility use dose modulation, iterative reconstruction, and/or weight-based dosing when appropriate to reduce radiation dose to as low as reasonably achievable. Dictated by Andre Wilkinson MD @ 11/13/2024 3:13:23 PM (Electronically Signed)
--- OUTSIDE RECORDS SUMMARY | 2024-11-14 00:10 | XMS_ITS | Clinical Summary ---
[facility] Organization [facility] Address [address] [place] [address] Care Team Providers Care Detective Supervisor Name Role Phone Kirby Medley MD Primary Care Provider [phone] Source Comments You are receiving this document as you are listed as the primary care provider,follow-up provider, or the patient has been referred to you for consultation.This is in compliance with the Medicare and[facility] Cent[facility] EHR Incentive Program,which states Providers who transition their patient to another setting of careor provider of care or refers their patient to another provider of care shouldprovide summary care record for each transition of care or referral. [employer] Allergies Active Allergy Reactions Criticality Noted Date Comments Ciprofloxacin Rash 11/03/2014 Sulfa Antibiotics Hives 10/10/2014 Sulfasalazine Hives High 10/10/2014 Triamcinolone Anxiety 10/10/2014 PN: chest pain, constipation, severe redness of face, headaches Medications omeprazole (AKA PRILOSEC) 10 MG capsule Take 1 Capsule (10 mg) by mouth daily. 10/10/2014 Active ALBUterol sulfate HFA 108 (90 Base) MCG/ACT inhaler 2 Puffs. 01/05/2024 Act maritza Potassium Gluconate 550 (90 K) MG TABS Take 1 Tablet by mouth daily. Active cholecalciferol (VITAMIN D3) 25 MCG (1000 UT) tablet Take 1 Drop by mouth. Active Magnesium Amino Acid Chelate 20 % POWD Take 1 Drop by mouth. Active budesonide (PULMICORT) 0.5 MG/2ML inhalation suspension Inhale 2 mL (0.5 mg). 03/26/2024 Active Active Problems Problem Noted Date Diagnosed Date Allergy to cats 02/28/2024 Asthma 02/28/2024 Atrial fibrillation with rapid ventricular respo nse 02/28/2024 Complex tear of medial meniscus of left knee 01/2024 Overview (02/28/2024): Seen on MRI 2016. No meniscal surgery has been performed on this knee. Cough 02/28/2024 Elevated PSA 02/28/2024 Gastroesophageal reflux disease with esophagitis 02/28/2024 Hoarseness 02/28/2024 Insomnia 02/28/2024 Laryngeal spasm 02/28/2024 Night sweats 02/28/2024 Osteoarthritis of left knee 02/28/2024 Pain of thigh 02/28/2024 Palpitations 02/28/2024 Screening due 02/28/2024 Pneumonia due to severe acut e respiratory syndrome coronavirus 2 (SARS-CoV-2) 02/28/2024 Sinusitis 02/28/2024 SOB (shortness of breath) 02/28/2024 Anxiety 04/20/2011 Obstructive sleep apnea 04/20/2011 Tobacco use 04/20/2011 Gastroesophageal reflux disease 05/29/2010 Simple obesity 05/29/2010 Smoker 09/05/2009 Resolved Problems Problem Noted Date Diagnosed Date Resolved Date Cellulitis 02/28/2024 02/29/2024 Social History Tobacco Use Types Packs/Day Years Used Date Smoking Tobacco: Former Cigarettes Smokeless Tobacco: Never Comments:quit 4 yrs ago Alcohol Use Standard Drinks/Week Comments Yes 3 (1 standard drink = 0.6 oz pur e alcohol) Sex and Gender Information Value Date Recorded Sex Assigned at Not on file Legal Sex Male 5:12 AM CDT Gender Identity Not on file Sexual Orientation Not on file Last Filed Vital Signs Vital Sign Reading Time Taken Comments Blood Pressure 133/79 08/07/2017 3:30 PM CDT Pulse 74 08/07/2017 3:30 PM CDT Temperature 36.6 C (97.8 F) 08/07/2017 3:20 PM CDT Respiratory Rate 16 08/07/2017 3:30 PM CDT Oxygen Saturation 95% 08/07/2017 3:30 PM CDT Inhaled Oxygen Concentration - - Weight 104.3 kg (230 lb) 04/12/2024 8:31 AM BLAST SETTER Height 174 cm (5' 8.5) 04/12/2024 8:31 AM BLAST SETTER Body Mass Index 34.46 04/12/2024 8:31 AM BLAST SETTER Plan of Treatment Health Maintenance Due Date Last Done Comments Colon Cancer Screening Plan Due 1962 Diabetes Screening- (based o n age and BMI) 1962 Hep C Screening (Preventive Services) 1962 PSA Screening Discussion 1962 HIV Screening (Preventive Services) 1978 Adult Preventive Visit 1980 DTaP/Tdap/Td Vaccine (1 - Tdap) 1981 Pneumococcal Vaccine 50+ Yrs (1 of 2 - PCV) 1981 Cholesterol 1997 Zoster/Shingles Vaccine (1 of 2) 2012 COVID-19 Vaccine ( - 2023-2 5 season) 2024 Influenza Vaccine (Season Ended) 2025 RSV Vaccine (1 - 1-dose 75+ series) 2037 HepA Vaccine Aged Out No longer eligi ble based on patient's age to complete this topic HepB Vaccine Aged Out No longer eligi ble based on patient's age to complete this topic Hib Vaccine Aged Out No longer eligi ble based on patient's age to complete this topic IPV (Polio) Vaccine Aged Out No longe r eligible based on patient's age to complete this topic MCV4 Vaccine Aged Out No longer eligi ble based on patient's age to complete this topic Meningococcal B Vaccine Aged Out No l onger eligible based on patient's age to complete this topic Medical Devices Implanted Type Area Technician Biological Health Device Identifier Shelf Expiration Date Model / Serial / Lot [place] [employer] - [id number] Implanted:Qty: 1 on 08/07/2017 by Joe Stearns MD at [facility] Right: SHOULDER [employer] 05/21/2019 [id number]-[id number] -4 / 000 / [id number] Scr [employer] Swivelock - [id number] Implanted:Qty: 1 on 08/07/2017 by Joe Stearns MD at [facility] Right: SHOULDER [employer] 04/20/2019 [id number] / 000 / [id number] Insurance [employer] Care Teams Detective Supervisor Relationship Specialty Start Date End Date Kirby Medley MD [address] [place] [address] PCP - General 09/30/14
--- OUTSIDE RECORDS SUMMARY | 2024-11-14 00:11 | XMS_ITS | Continuity of Care Document ---
Author Organization [facility] Address [address] [place] [address] Assessment Encounter Date Assessment Date Assessment LastModified by Organization Details LastModified Time 11/11/2024 11/11/2024 ASSESSMENT: Patient is a good candidate for conservative care and the prognosis is for a favorable outcome that achieves the patients' goals. We discussed etiology, activity modifications, home care, and other treatment options. Initially, it is recommended that the patient receive in-office treatment 1 times per week for 8 weeks at which time a re-evaluation will be performed to determine an appropriate change in plan. Initially, treatment will focus on joint manipulation to restore range of motion and reduce pain. We will slowly progress to therapeutic exercises and activities to improve function, strength, and stability may also be used as warranted. If the patient is not responding as expected, more invasive procedures will be discussed along with a referral. All considerations above were discussed with the patient and questions answered to satisfaction. If the patient should have any additional questions, or should the condition evolve or worsen, the patient should not hesitate to contact our office. [email or web address] Not available 11/11/2024 16:17:45 Plan of Treatment Reminders Order Date Submit Date Provider Last Modified By Organization Details Last Modified Time Details Appointments None record ed. Lab None record ed. Referral None record ed. Procedures None record ed. Surgeries None record ed. Imaging None record ed. Medication Orders None record ed. Patient TargetsNo targets recorded. Patient InstructionsNo instructions recorded. Reason for Referral None Reported. Problems Name Problem SNOMED Code Status Onset Date Resolution Date Notes Provider Name and Address Organization Details Recorded Time Cervical segmental dysfunction 039828000 Active 2024 Bridger Delgado DC [address] [facility], [place], [address], [place] [facility] 5 12:26:49 Neck pain 94319781 Active 2024 Bridger Delgado, VALERIANO [address], [place], [address], [place] [facility] 5 12:26:49 Lumbar segmental dysfunction 206083447 Active 2023 Raul Reno DC [address], [place], [address], [place] [facility] 4 11:43:00 Low back pain 514131739 Active 2023 Raul Reno, VALERIANO [address], [place], [address], [place] [facility] 4 11:43:00 Thoracic segmental dysfunction 254628995 Active 2023 Raul Reno, VALERIANO [address], [facility] [place], [address], [place] [facility] 4 11:43:00 Somatic dysfunction of sacral spine 997432232 Active 2023 Raul Reno, VALERIANO [address], [place], [address], [place] [facility] 4 11:43:00 Problem Notes None recorded. Procedures Surgical History Date Name Laterality Status Provider Name and Address Organization Details Recorded Time 5 04282: Spinal manipulation , 3 to 4 regions completed [facility] [place] [address], [place], [address], [place] [facility] 11/11/2024 16:18:10 5 42279: Spinal manipulation , 3 to 4 regions completed [facility] [place] [address], [place], [address], [place] [facility] 10/08/2024 17:22:47 5 04741: Spinal manipulation , 3 to 4 regions completed Carlos Carranzaheidihima [place] [address], [place], [address], [place] [facility] 10/01/2024 16:52:36 5 64948: Spinal manipulation , 3 to 4 regions completed Carlos Carranzaheidihima [place] [address], [place], [address], [place] [facility] 08/28/2024 19:07:37 5 05267: Spinal manipulation , 3 to 4 regions completed Carlos Carranzaheidihima [place] [address], [place], [address], [place] [facility] 08/27/2024 09:45:37 5 47801: Spinal manipulation , 3 to 4 regions completed Bridger Delgado DC [address], [place], [address], [facility] 08/05/2024 13:05:26 5 66566: Spinal manipulation , 3 to 4 regions completed Bridger Delgado DC [address], [place], [address], [place] [facility] 07/01/2024 12:26:37 4 73817: Spinal manipulation , 3 to 4 regions completed Raul Reno, [place] [address], [place], [address], [facility] [place] [facility] 05/21/2024 11:43:31 Imaging Results None recorded. Procedure Notes None recorded. Medical Equipment None Reported. Medications Name Sig Start Date Stop Date Status Note LastModified by Organization Details LastModified Time albuterol sulfate 2.5 mg/3 mL (0.083 %) solution for nebulization INHALE 3 MILLILITER BY NEBULIZATIO N ROUTE EVERY 4 - 6 HOURS NEEDED active Not Available Not Available No t Available budesonide 0.5 mg/2 mL suspension for nebulization INHALE 2 ML (0.5 MG) VIA A NEBULIZER TWO TIMES DAILY. active Not Available Not Available No t Available fluticasone propionate 220 mcg/actuatio n HFA aerosol inhaler TAKE 1 PUFF BY MOUTH TWICE A DAY active Not Available Not Available Not Available fluticasone 100 mcg-salmeter ol 50 mcg/dose blistr powdr for inhalation 1 INH INHALED TWICE A DAY FOR ASTHMA active Not Available Not Available N ot Available albuterol sulfate HFA 90 mcg/actuatio n aerosol inhaler TAKE 2 PUFFS BY MOUTH EVERY 4 TO 6 HOURS NEEDED active Not Available Not Available No t Available fluticasone propionate 110 mcg/actuatio n HFA aerosol inhaler TAKE 1 PUFF BY MOUTH TWICE A DAY active Not Available Not Available Not Available amoxicillin 875 mg-potassium clavulanate 125 mg tablet TAKE 1 TABLET BY MOUTH TWICE A DAY active Not Available Not Available No t Available fluticasone propionate 115 mcg-salmeter ol 21 mcg/actuatio n HFA inhaler INHALE 2 PUFFS TWICE A DAY active Not Available Not Available No t Available GaviLyte-G 236 gram-22.74 gram-6.74 gram-5.86 gram oral solution active Not Available Not Available Not Available Vitals None Recorded Social History None recorded. Functional Status None recorded. Mental Status None recorded. Family History Nothing Reported. Medical History No medical history recorded. Past Encounters Encounter ID Performer Location Encounter Start Date Encounter Closed Date Diagnosis/Indication Diagnosis SNOMED-CT Code Diagnosis ICD10 Code Diagnosis Note [id number] Carlos Heck DC [facility] [address] [place] [address] [place] [address] 11/11/2024 12:22:30 11/11/2024 16:30:46 Lumbar segmental dysfunction 257860115 M99.03 Low back pain 380710273 M54.50 Somatic dy sfunction of sacral spine 259590065 M99.04 Thoracic s egmental dysfunction 169616908 M99.02 Health Concerns Section Related Observation LastModified by Organization Detai ls LastModified Time None Recorded Concern Status LastModified by Organization Details LastModified Time None Recorded Payers Encounter Date Sequence Insurance Name Policy Number Policy Deras Covered Member ID Deras Member ID Guarantor Name 11/11/2024 1 [place] [id number] Vipul Baez [id number] Herve Baez Notes Date Note Type Note Provider Name and Address Organization Details Recorded Time 11/11/2024 text/html HPI - Lumbar SpineReported bypatient.Location: left Quality:aching Severity:moderate Timing:morning Aggravating Factors:walking; lifting; carrying; twisting Alleviating Factors:rest Carlos Heck DC [address], [place], [address], [facility] 11/11/2024 16:18:22
--- OUTSIDE RECORDS SUMMARY | 2024-11-14 00:11 | XMS_ITS | Continuity of Care Document ---
Author Organization [facility] Address [address] [facility] [address] [place] [address] Assessment Encounter Date Assessment Date Assessment LastModified by Organization Details LastModified Time 10/08/2024 10/08/2024 ASSESSMENT: Patient is a good candidate for [...] to contact our office. [email or web address] Not available 10/08/2024 17:22:13 Plan of Treatment Reminders Order Date Submit [...] Organization Details Recorded Time Cervical segmental dysfunction 017912663 Active 2024 Bridger Delgado DC [address], [place], [address], [place] [facility] 5 12:26:49 Neck pain 04765651 Active 2024 Bridger Delgado, VALERIANO [address] [facility], [place], [address], [place] [facility] 5 12:26:49 Lumbar segmental dysfunction 672599328 Active 2023 Raul Reno DC [address] [facility], [place], [address], [place] [facility] 4 11:43:00 Low back pain 281954223 Active 2023 Raul Reno, VALERIANO [address] [facility], [place], [address], [place] [facility] 4 11:43:00 Thoracic segmental dysfunction 763566716 Active 2023 Raul Reno, VALERIANO [address] [facility], [place], [address], [place] [facility] 4 11:43:00 Somatic dysfunction of sacral spine 717645578 Active 2023 Raul Reno, VALERIANO [address] [facility], [place], [address], [place] [facility] 4 11:43:00 Problem Notes None recorded. Procedures Surgical History Date Name Laterality Status Provider Name and Address Organization Details Recorded Time 5 34492: Spinal manipulation , 3 to 4 regions completed [facility] [place] [address] [facility], [place], [address], [place] [facility] 11/11/2024 16:18:10 5 20352: Spinal manipulation , 3 to 4 regions completed [facility] [place] [address] [facility], [place], [address], [place] [facility] 10/08/2024 17:22:47 5 42616: Spinal manipulation , 3 to 4 regions completed Carlos Carranzaheidihima [place] [address] [facility], [place], [address], [place] [facility] 10/01/2024 16:52:36 5 51501: Spinal manipulation , 3 to 4 regions completed Carlos Carranzaheidihima [place] [address] [facility], [place], [address], [place] [facility] 08/28/2024 19:07:37 5 79278: Spinal manipulation , 3 to 4 regions completed Carlos Carranzaheidihima [place] [address] [facility], [place], [address], [place] [facility] 08/27/2024 09:45:37 5 47162: Spinal manipulation , 3 to 4 regions completed Bridger Delgado DC [address] [facility], [place], [address], [facility] - [facility] 08/05/2024 13:05:26 5 61251: Spinal manipulation , 3 to 4 regions completed Bridger Delgado DC [address] [facility], [place], [address], [place] [facility] 07/01/2024 12:26:37 4 35360: Spinal manipulation , 3 to 4 regions completed Raul Reno, [place] [address] [facility], [place], [address], [facility] - [facility] 05/21/2024 11:43:31 Imaging Results None recorded. [...] SNOMED-CT Code Diagnosis ICD10 Code Diagnosis Note [id number] Carlos Heck DC [facility] [address] [address] 10/01/2024 09:38:20 10/01/2024 17:28:05 Lumbar segmental dysfunction 885985292 M99.03 Low back pain 637965346 M54.50 Somatic dy sfunction of sacral spine 321444525 M99.04 Thoracic s egmental dysfunction 610297054 M99.02 [id number] Carlos Heck DC [facility] [address] [place] [address] 10/08/2024 09:59:07 10/08/2024 18:15:11 Lumbar segmental dysfunction 185521120 M99.03 Low back pain 228638916 M54.50 Somatic dy sfunction of sacral spine 041216383 M99.04 Thoracic s egmental dysfunction 552139522 M99.02 Health Concerns Section Related Observation LastModified by Organization Detai ls LastModified Time None Recorded Concern Status LastModified by Organization Details LastModified Time None Recorded Payers Encounter Date Sequence Insurance Name Policy Number Policy Deras Covered Member ID Deras Member ID Guarantor Name 10/08/2024 1 [place] [id number] Vipul Baez [id number] Herve Baez Notes Date Note Type Note Provider Name and Address Organization Details Recorded Time 10/08/2024 text/html HPI - Lumbar SpineReported bypatient.Location: left Quality:aching Severity:moderate Timing:morning Aggravating Factors:walking; lifting; carrying; twisting Alleviating Factors:rest Carlos Heck DC [address] [facility], [place], [address], [facility] 10/08/2024 17:22:59
--- OUTSIDE RECORDS SUMMARY | 2024-11-14 00:11 | XMS_ITS | Continuity of Care Document ---
Author Organization [facility] Address [address] [facility] [address] [place] [address] Assessment Encounter Date Assessment Date Assessment LastModified by Organization Details LastModified Time 10/01/2024 10/01/2024 ASSESSMENT: Patient is a good candidate for [...] to contact our office. [email or web address] Not available 10/01/2024 16:52:06 Plan of Treatment Reminders Order Date Submit [...] Organization Details Recorded Time Cervical segmental dysfunction 339870633 Active 2024 Bridger Delgado DC [address] [facility], [place], [address], [place] [facility] 5 12:26:49 Neck pain 81988128 Active 2024 Bridger Delgado, VALERIANO [address] [facility], [place], [address], [place] [facility] 5 12:26:49 Lumbar segmental dysfunction 521044754 Active 2023 Raul Reno DC [address] [facility], [place], [address], [place] [facility] 4 11:43:00 Low back pain 286038098 Active 2023 Raul Reno, VALERIANO [address] [facility], [place], [address], [place] [facility] 4 11:43:00 Thoracic segmental dysfunction 794023119 Active 2023 Raul Reno, VALERIANO [address] [facility], [place], [address], [place] [facility] 4 11:43:00 Somatic dysfunction of sacral spine 438149617 Active 2023 Raul Reno, VALERIANO [address] [facility], [place], [address], [place] [facility] 4 11:43:00 Problem Notes None recorded. Procedures Surgical History Date Name Laterality Status Provider Name and Address Organization Details Recorded Time 5 17641: Spinal manipulation , 3 to 4 regions completed [facility] [place] [address] [facility], [place], [address], [place] [facility] 11/11/2024 16:18:10 5 57145: Spinal manipulation , 3 to 4 regions completed [facility] [place] [address] [facility], [place], [address], [place] [facility] 10/08/2024 17:22:47 5 58888: Spinal manipulation , 3 to 4 regions completed Carlos Carranzaheidihima [place] [address] [facility], [place], [address], [place] [facility] 10/01/2024 16:52:36 5 14608: Spinal manipulation , 3 to 4 regions completed Carlos Carranzaheidihima [place] [address] [facility], [place], [address], [place] [facility] 08/28/2024 19:07:37 5 44603: Spinal manipulation , 3 to 4 regions completed Carlos Carranzaheidihima [place] [address] [facility], [place], [address], [place] [facility] 08/27/2024 09:45:37 5 84238: Spinal manipulation , 3 to 4 regions completed Bridger Delgado DC [address] [facility], [place], [address], [facility] [place] [facility] 08/05/2024 13:05:26 5 54671: Spinal manipulation , 3 to 4 regions completed Bridger Delgado DC [address] [facility], [place], [address], [place] [facility] 07/01/2024 12:26:37 4 88978: Spinal manipulation , 3 to 4 regions completed Raul Reno, [place] [address] [facility], [place], [address], [facility] [place] [place] [facility] 05/21/2024 11:43:31 Imaging Results None recorded. Procedure [...] SNOMED-CT Code Diagnosis ICD10 Code Diagnosis Note [id number] Carlos Heck DC [facility] [address] [place] [address] [place] [address] 10/01/2024 09:38:20 10/01/2024 17:28:05 Lumbar segmental dysfunction 910719348 M99.03 Low back pain 791974208 M54.50 Somatic dy sfunction of sacral spine 538732408 M99.04 Thoracic s egmental dysfunction 293050191 M99.02 Health Concerns Section Related Observation LastModified by Organization Detai ls LastModified Time None Recorded Concern Status LastModified by Organization Details LastModified Time None Recorded Payers Encounter Date Sequence Insurance Name Policy Number Policy Deras Covered Member ID Deras Member ID Guarantor Name 10/01/2024 1 [place] [id number] Vipul Baez [id number] Herve Baez Notes Date Note Type Note Provider Name and Address Organization Details Recorded Time 10/01/2024 text/html HPI - Lumbar SpineReported bypatient.Location: left Quality:aching Severity:moderate Timing:morning Aggravating Factors:walking; lifting; carrying; twisting Alleviating Factors:rest Carlos Heck DC [address] [facility], [place], [address], [facility] 10/01/2024 16:52:50
--- OUTSIDE RECORDS SUMMARY | 2024-11-14 00:11 | XMS_ITS | Clinical Summary ---
Author Organization [employer] Address [address] [place] [address] Care Team Providers Care Pharmacy Delivery Driver Name Role Phone Kirby Medley MD [...] severe redness of face, headaches Medications omeprazole (PRILOSEC) 20 mg Delayed-Release capsuleIndicati ons:GERD (gastroesophage al reflux disease) Take 20 mg by mouth once daily before a meal. 0 1 Active cholecalciferol , vitamin D3, (VITAMIN D3 ORAL) Take 1 [...] once daily. Active acetaminophen (TYLENOL) 325 mg tabletIndicatio ns:Postoperativ e pain Take 2 tablets by mouth every 4 hours if needed. Max acetaminophen dose: 4000mg in 24 hrs. 60 tablet 08/15/2018 8:32 AM CDT 9 Active albuterol HFA (PRO-AIR; VENTOLIN; PROVENTIL) 90 mcg/actuation inhalerIndicati ons:Laryngeal spasm TAKE 2 PUFFS BY MOUTH EVERY 4 TO 6 HOURS NEEDED 8.5 Each 11 5 Active albuterol 0.083% (2.5 mg/3 mL) neb solutionIndicat ions:Laryngeal spasm INHALE 3 MILLILITER BY NEBULIZATION ROUTE EVERY 4 - 6 HOURS NEEDED 300 mL 11 5 Active amoxicillin-cla vulanate 875-125 mg tablet Take 1 Tablet by mouth two times daily with meals. Active budesonide 0.5 mg/2 mL neb suspensionIndic ations:Asthma, unspecified asthma severity, unspecified whether complicated, unspecified whether persistent (HC) Inhale 2 mL (0.5 mg) via a nebulizer two times daily. 120 mL 5 5 Active Active Problems Problem Noted Date Diagnosed Date GERD (gastroesophageal reflux disease) 1 Obesity, unspecified 05/29/2010 Smoker 09/05/2009 Encounters Date Type Department Care Team Description 11/07/2024 Telephone [facility] [address] [place] [address] Michael Jules MD 10/25/2024 Orders Only [facility] [address] [place] [address] Michael Jules MD <No scans attached> 10/24/2024 1:35 PM CDT - 10/24/2024 11:59 PM CDT Hospital Encounter [facility] [address] [facility] [place] [address] Michael Jules MD Asthma, unspecified asthma severity, unspecified whether complicated, unspecified whether persistent (HC) 10/24/2024 Travel 10/11/2024 4:00 PM CDT Office Visit [address] [place] [id number] Michael Jules MD Consult (Asthma) 10/11/2024 Travel from Last 3 Months Family History Medical History Relation Name Comments [...] at Not on file 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 Gender Identity Not on file Sexual Orientation Not on file Obstetrics History Last Filed Vital Signs Vital Sign Reading Time Taken Comments Blood Pressure 138/78 10/11/2024 4:24 PM CDT Pulse 80 10/11/2024 4:24 PM CDT Temperature 37 C (98.6 F) 10/05/2019 10:21 PM CDT Respiratory Rate 18 10/05/2019 9:27 PM CDT Oxygen Saturation 95% 10/11/2024 4:24 PM CDT Inhaled Oxygen Concentration - - Weight 108.4 kg (239 lb) 10/11/2024 4:24 PM CDT Height 175.3 cm (5' 9) 10/11/2024 4:24 PM CDT Body Mass Index 35.29 10/11/2024 4:24 PM CDT Plan of Treatment Health Maintenance Due Date Last Done Comments Tdap 1973 Depression screening for age 12+ 1974 HIV for age 15-65 1977 Hepatitis C screening for ag e 18-79 1980 Tetanus booster 1982 Colonoscopy through age 75 12/18/2007 Lipids for age 45-75 12/18/2007 Pneumococcal series for age 50+ (1 of 1 - PCV) 2012 Zoster (shingles) series for age 50+ (1 of 2) 2012 RSV vaccine for adults or (1 - Risk 60-74 years 1-dose series) 2022 COVID-19 vaccine series ( season) 2024 Influenza Vaccine (Season Ended) 2025 BMI (ht and wt on same day) for age 18+ 10/11/2025 10/11/2024, 06/22/2018 Hepatitis B series for 19+ Aged Out N o longer eligible based on patient's age to complete this topic Medical Devices Implanted Type Area Instructional Technology Instructor Device Identifier Shelf Expiration Date Model / Serial / Lot [id number] Matrix [id number] Osteoampsponge Implanted:Qty: 1 on 08/13/2018 by Kendrick Tsang MD at [facility] Explanted:at [facility] (Quantity not on file) Spine [employer] 03/26/2023 [id number]# / [id number] / [id number] Matrix [id number] Osteoampsponge Implanted:Qty: 1 on 08/13/2018 by Kendrick Tsang MD at [facility] Explanted:at [facility] (Quantity not on file) Spine [employer] 05/28/2023 [id number]# / [id number] / Set Screw Lmbr 4.48q02vv Solera 4.75 Ns Brk Off - [id number] Implanted:Qty: 7 on 08/13/2018 by Kendrick Tsang MD at [facility] Spine Medtronic Spine/Ortho [id number]# / / Screw Lmbr Post 7.5x50mm Solera 4.75 Va - [id number] Implanted:Qty: 2 on 08/13/2018 by Kendrick Tsang MD at [facility] Spine [employer]tronic Spine/Ortho [id number]# / / Screw Lmbr Post 8.5x40mm Solera 4.75 Va - [id number] Implanted:Qty: 2 on 08/13/2018 by Kendrick Tsang MD at [facility] Spine Medtronic Spine/Ortho [id number] 0# / / Ziyad Lmbr 40mmx4.75cm Solera 4.75 Cvd Co Cr - [id number] Implanted:Qty: 1 on 08/13/2018 by Kendrick Tsang MD at [facility] Spine Medtronic Spine/Ortho [id number] # / / Ziyad Lmbr 45mmx4.75cm Solera 4.75 Cvd Co Cr - [id number] Implanted:Qty: 1 on 08/13/2018 by Kendrick Tsang MD at [facility] Spine Medtronic Spine/Ortho [id number] # / / Procedures Procedure Name Priority Date/Time Associated Diagnosis Comments COMPLETE PULMONARY FUNCTION TEST WITH BRONCHODILATOR Routine 10/24/2024 2:00 PM CDT Asthma, unspecified asthma severity, unspecified whether complicated, unspecified whether persistent (HC) from Last 3 Months Results * COMPLETE PULMONARY FUNCTION TEST WITH BRONCHODILATOR (10/24/2024 2:00 PM CDT) Narrative [facility] - 10/24/2024 2:00 PM CDT Norbert Tao MD 10/24/2024 3:57 PM Complete Pulmonary Function Tests. Ordering Provider: Michael Jules MD Reason for Study: (J45.909) Asthma, unspecified asthma severity, unspecified whether complicated, unspecified whether persistent (HC) Date of study: 10/24/2024 Study adequacy: The study is technically adequate. DESCRIPTION: Spirometry is normal. There is no bronchodilator responsiveness. The flow volume loop is normal There is a mild increase in the RV/TLC ratio which is seen in hyperinflation. Diffusion is normal IMPRESSION: Spirometry is normal. Lung volumes suggest hyperinflation which suggests obstructive lung disease. Diffusion is normal. If there is concern for asthma, consider a methacholine challenge test. Pulmonary Function Tests describe physiology and are not independently diagnostic. Clinical correlation is recommended. Objective Severity Z-Score Normal > -1.645 Mild - 1.645 to -2.5 Moderate -2.5 to -4 Severe < -4 Interpretative Algorithm: Spirometry Interpretation Algorithm Lung Volume Interpretation Algorithm Diffusion Interpretation Algorithm Norbert Tao MD Pulmonary and Sleep Medicine [facility] [phone] 10/24/2024 3:56 PM us Michael Jules MD PFT ORD Final Res ult [facility] NOW [place], [place] from Last 3 Months Insurance Envie de Fraises [facility] [place] [address] Advance Directives * Full Code (Latest Code Status on File) Date Activated Date Inactivated Comments 08/13/2018 5:23 PM 08/15/2018 2:53 PM Care Teams Pharmacy Delivery Driver Relationship Specialty Start Date End Date Kirby Medley MD [address] [place] [id number] PCP - General Internal Medicine 10/24/19
--- OUTSIDE RECORDS SUMMARY | 2024-11-14 00:11 | XMS_ITS | Encounter Summary ---
Author Organization [facility] Address [address] [place] [address] Care Team Providers Care Grader Marker Name Role Phone Kirby Medley MD Primary Care Provider [phone]- [phone] Encounter Details Date Type Department Care Team (Late st Contact Info) Description 10/27/2014 Orders Only [facility] [address] [place] [address] Joe Stearns MD [address] [place] [id number] Rotator cuff tear, left Social History Tobacco [...] sprain documented in this encounter Care Teams Grader Marker Relationship Specialty Start Date End Date Kirby Medley MD [address] [place] [address] PCP - General 09/30/14 documented as of this encounter
--- OUTSIDE RECORDS SUMMARY | 2024-11-14 00:11 | XMS_ITS | Data Portability ---
Author Organization [place] [facility] [employer] Address [address] [facility] [address] [place] [address] Assessment Encounter Date Assessment Date Assessment LastModified by Organization Details LastModified Time 08/27/2024 08/27/2024 ASSESSMENT: Patient is a good candidate for [...] should not hesitate to contact our office. ASSESSMENT: Patient is a good candidate for [...] should not hesitate to contact our office. Not available 08/27/2024 09:45:37 08/28/2024 08/28/2024 ASSESSMENT: Patient is a good candidate for [...] should not hesitate to contact our office. ASSESSMENT: Patient is a good candidate for [...] should not hesitate to contact our office. Not available 08/28/2024 19:07:37 10/01/2024 10/01/2024 ASSESSMENT: Patient is a good [...] should not hesitate to contact our office. Not available 10/01/2024 16:52:06 10/08/2024 10/08/2024 ASSESSMENT: Patient is a good [...] should not hesitate to contact our office. Not available 10/08/2024 17:22:13 11/11/2024 11/11/2024 ASSESSMENT: Patient is a good [...] should not hesitate to contact our office. Not available 11/11/2024 16:17:45 Plan of Treatment [...] Organization Details Recorded Time Cervical segmental dysfunction 584665588 Active 2024 Bridger Delgado DC [address] [facility], [place], [phone], [facility] 5 12:26:49 Neck pain 80178678 Active 2024 Bridger Delgado DC [address] [facility] [address], [place], [address], [facility] 5 12:26:49 Lumbar segmental dysfunction 242963484 Active 2023 Raul Reno DC [address] [facility] [address], [place], [address], [facility] 4 11:43:00 Low back pain 517464737 Active 2023 Raul Reno DC [address] [facility] [address], [place], [address], [facility] 4 11:43:00 Thoracic segmental dysfunction 103206028 Active 2023 Raul Reno DC [address] [facility] [address], [place], [address], [facility] 4 11:43:00 Somatic dysfunction of sacral spine 501978571 Active 2023 Raul Reno DC [address] [facility] [address], [facility], [phone], [facility] 4 11:43:00 Problem Notes None recorded. Procedures Surgical History Date Name Laterality Status Provider Name and Address Organization Details Recorded Time 5 70092: Spinal manipulation , 3 to 4 regions completed Carlos Billy Maria R PA [address] [facility], [place], [address], [facility] 11/11/2024 16:18:10 5 [address]200: Spinal manipulation , 3 to 4 regions completed Carlos Wenceslao Maria R PA [address], [place], [address], [facility] 10/08/2024 17:22:47 5 [address]2975: Spinal manipulation , 3 to 4 regions completed Carlos Wenceslaoklaudia Heck PA [address] [facility] [address], [place], [address], [facility] 10/01/2024 16:52:36 5 19730: Spinal manipulation , 3 to 4 regions completed Carlos Wenceslaoklaudia Heck PA [address] [facility] [address], [place], [address], [facility] 08/28/2024 19:07:37 5 74055: Spinal manipulation , 3 to 4 regions completed Carlos Wenceslaoklaudia Heck DC [address] [facility] [address], [place], [address], [facility] 08/27/2024 09:45:37 5 44614: Spinal manipulation , 3 to 4 regions completed Bridger Delgado DC [address] [facility] [address], [place], [address], [facility] 08/05/2024 13:05:26 5 88921: Spinal manipulation , 3 to 4 regions completed Bridger Delgado DC [address] [facility] [address], [place], [address], [facility] 07/01/2024 12:26:37 36131: Spinal manipulation , 3 to 4 regions completed Raul Reno DC [address] [facility] [address], [place], [address], [facility] 05/21/2024 11:43:31 Imaging Results None recorded. Procedure [...] SNOMED-CT Code Diagnosis ICD10 Code Diagnosis Note [id number] Raul Reno DC [facility] & [address] [place] [address] 05/16/2024 16:05:53 05/23/2024 17:43:48 Lumbar segmental dysfunction 033572134 M99.03 Low back pain 914826647 M54.50 Somatic dy sfunction of sacral spine 521675786 M99.04 Thoracic s egmental dysfunction 290326045 M99.[id number] [facility] & [address] [place] [address] 07/01/2024 11:36:26 07/01/2024 12:31:51 Lumbar segmental dysfunction 048077661 M99.03 Low back pain 298143873 M54.50 Somatic dy sfunction of sacral spine 757410697 M99.04 Thoracic s egmental dysfunction 886560114 M99.02 Cervical s egmental dysfunction 539740906 M99.01 Neck pain 52290899 M54.2 [id number] Bridger Delgado DC [facility] & [address] [place] [address] 08/05/2024 12:37:06 08/05/2024 15:04:22 Lumbar segmental dysfunction 991549145 M99.03 Low back pain 646873077 M54.50 Somatic dy sfunction of sacral spine 590781795 M99.04 Thoracic s egmental dysfunction 180677023 M99.02 Cervical s egmental dysfunction 803733720 M99.01 Neck pain 37398194 M54.2 [id number] Carlos Heck DC [facility] & [address] [place] [address] 08/27/2024 09:19:24 08/27/2024 15:02:16 Lumbar segmental dysfunction 156809315 M99.03 Low back pain 016223063 M54.50 Somatic dy sfunction of sacral spine 913446050 M99.04 Thoracic s egmental dysfunction 081549676 M99.02 Cervical s egmental dysfunction 648570796 M99.01 Neck pain 90695325 M54.2 [id number] Carlos Heck DC [facility] & [facility] [address] [place] [address] 08/28/2024 09:18:57 08/30/2024 11:19:03 Lumbar segmental dysfunction 284918349 M99.03 Low back pain 014477652 M54.50 Somatic dy sfunction of sacral spine 960007853 M99.04 Thoracic s egmental dysfunction 969788129 M99.02 Cervical s egmental dysfunction 200775768 M99.01 Neck pain 71048519 M54.2 [id number] Carlos Heck DC [facility] & [address] [place] [address] 10/01/2024 09:38:20 10/01/2024 17:28:05 Lumbar segmental dysfunction 584510204 M99.03 Low back pain 096145439 M54.50 Somatic dy sfunction of sacral spine 252803267 M99.04 Thoracic s egmental dysfunction 129867771 M99.02 [id number] Carlos Heck DC [facility] & [address] [place] [address] 10/08/2024 09:59:07 10/08/2024 18:15:11 Lumbar segmental dysfunction 764277813 M99.03 Low back pain 656715431 M54.50 Somatic dy sfunction of sacral spine 498776776 M99.04 Thoracic s egmental dysfunction 654495220 M99.02 [id number] Carlos Heck DC [facility] & [address] [place] [address] 11/11/2024 12:22:30 11/11/2024 16:30:46 Lumbar segmental dysfunction 544977472 M99.03 Low back pain 540133645 M54.50 Somatic dy sfunction of sacral spine 901836872 M99.04 Thoracic s egmental dysfunction 891514142 M99.02 Health Concerns Section Related Observation LastModified by Organization Detai ls LastModified Time None Recorded Concern Status LastModified by Organization Details LastModified Time None Recorded Advance Directives Directive None Recorded Payers Insurance Date Sequence Insurance Name Policy Number Policy Deras Covered Member ID Deras Member ID Guarantor Name 07/01/2024 1 *SELF PAY* Sukh zarate Nestor 11/11/2024 1 [place] [id number] Vipul Barros Nestor [id number] Herve Baez Notes Date Note Type Note Provider Name and Address Organization Details Recorded Time 08/27/2024 text/html HPI - Cervical SpineReported bypatient.Location: right Quality:aching Severity:moderate Duration:days (2) Timing:acute Context:overuse Alleviating Factors:chiropracti c care; rest Aggravating Factors:bending; twisting/turning Associated Symptoms:no numbness/tinglingHP I - Lumbar SpineReported bypatient.Location: left; With radiation to knee Quality:dull Severity:improving Timing:occasional Context:bending; lifting; twisting Aggravating Factors:twisting; bending/squatting Alleviating Factors:rest; intensive care unit registered nurse [facility] Wenceslao Heck [address], [place], [address], [facility] 08/27/2024 12:23:35 08/28/2024 text/html HPI - Cervical SpineReported bypatient.Location: right Quality:aching Severity:moderate Duration:days (2) Timing:acute Context:overuse Alleviating Factors:chiropracti c care; rest Aggravating Factors:bending; twisting/turning Associated Symptoms:no numbness/tinglingHP I - Lumbar SpineReported bypatient.Location: left; With radiation to knee Quality:dull Severity:improving Timing:occasional Context:bending; lifting; twisting Aggravating Factors:twisting; bending/squatting Alleviating Factors:rest; intensive care unit registered nurse Carlos Blancoklaudia Heck DC [address] [place] [address], [place], [address], [facility] 08/28/2024 19:08:00 10/01/2024 text/html HPI - Lumbar SpineReported bypatient.Location: left Quality:aching Severity:moderate Timing:morning Aggravating Factors:walking; lifting; carrying; twisting Alleviating Factors:rest Carlos Blancoklaudia Heck DC [address] [place] [address], [place], [address], [facility] 10/01/2024 16:52:50 10/08/2024 text/html HPI - Lumbar SpineReported bypatient.Location: left Quality:aching Severity:moderate Timing:morning Aggravating Factors:walking; lifting; carrying; twisting Alleviating Factors:rest Carlos Heck DC [address] [facility] [address], [place], [address], [facility] 10/08/2024 17:22:59 11/11/2024 text/html HPI - Lumbar SpineReported bypatient.Location: left Quality:aching Severity:moderate Timing:morning Aggravating Factors:walking; lifting; carrying; twisting Alleviating Factors:rest Carlos Heck DC [address] [facility], [place], [address], [facility] 11/11/2024 16:18:22
== END 2024-11-13 10:20 | disposition home or self-care (01) ==
LOC: CT 10:19
PROVIDERS: PCP Internal Medicine; Visit Provider Internal Medicine
DX: J45.909 Unspecified asthma, uncomplicated (principal); R05.3 Chronic cough
CPT/HCPCS: 36415; 71260; 82565; Q9967